=== PATIENT | female | born 1970 | race Caucasian/White ===

== ENCOUNTER 2016-07-24 17:47 | Observation (INO) | payer OTHER ==
[2016-07-24] MEDS ORDERED: ASPIRIN 81 MG CHEW TAB PO ONE (18:00)
[2016-07-24 18:11] LABS: BASOPHILS % 0.6 (0.0-1.5); EOSINOPHILS % 3.1 % (0.0-6.8); LYMPHOCYTES # 2.5 # k/uL (0.6-4.0); MONOCYTES # 0.2 # k/uL (0.0-0.9); MONOCYTES % 3.1 % (0.0-11.0); NEUTROPHILS # 3.8 # k/uL (1.4-7.7)
[2016-07-24 18:28] LABS: eGFR (African) > 60; eGFR (Non-African) > 60
[2016-07-24] MEDS ORDERED: NITROGLYCERIN 0.4 MG TAB.SUBL SL ONE ×2 (18:28→19:02)
[2016-07-24] MEDS ORDERED: ONDANSETRON HCL/PF 4 MG/ 2ML VIAL ONE (18:28)
[2016-07-24] MEDS ORDERED: ONDANSETRON HCL/PF 4 MG/ 2ML VIAL IVP ONE (18:28)
--- NOTE | 2016-07-24 19:02 | ED Physician Documentation ---
General Adult - HISTORIAN Historian: patient - HPI Stated Complaint: chest pain Chief Complaint: General Adult Onset: days ago Timing: still present Severity: moderate Further Comments: yes (Pt is a 46 yo female with 3 hx of intermittent chest pain , sob, nausea. Pt has hx ND about 3 yrs ago with stent placement and also has had hx of surgery to remove pituitary tumor. Pt is a smoker. Pt states that pain occurs in L shoulder and arm and also in L leg. 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.) - ROS CONST: other (malaise) EYES/ENT: none CVS/RESP: chest pain, shortness of breath GI/: nausea MS/SKIN/LYMPH: leg pain, other (arm pain) - PAST HX Past History: AMI, COPD, hypertension Other History: diabetes Type 2, other (HLD) Surgeries/Procedures: cardiac stent Allergies/Adverse Reactions: Allergies Allergy/AdvReac Type Severity Reaction Status Date / Time tramadol Allergy Intermediate Vomiting Verified 07/24/16 18:42 ketorolac tromethamine AdvReac Intermediate Nausea/Vomi Verified 07/24/16 18:44 [From Toradol] ting nortriptyline [Nortriptyline] AdvReac Intermediate Vomiting Verified 07/24/16 18 :42 Home Medications: Ambulatory Orders Medication Instructions Recorded Metformin HCl [Glucophage] 1,000 mg D 01/17/13 Simvastatin [Simvastatin] 10 mg D 01/17/13 acetaZOLAMIDE [Diamox] 500 mg PO BID #30 tablet 06/03/14 Cyclobenzaprine HCl [Flexeril] 5 mg PO TID PRN #10 tablet 12/10/15 Oxycodone HCl/Acetaminophen 1 tab PO Q4-6 PRN 12/10/15 [Oxycodone-Acetaminophen 10-325] - SOCIAL HX Smoking History: cigarettes - FAMILY HX Family History: Yes (CAD before age 55) - VITAL SIGNS Vital Signs: Vital Signs Temp Pulse Resp BP Pulse Ox 98.4 F 84 20 126/93 96 07/24/16 17:45 07/24/16 17:45 07/24/16 17:45 07/24/16 17:45 07/24/16 17:45 - REVIEWED ASSESSMENTS Nursing Assessment Reviewed: Yes Vitals Reviewed: Yes Progress - Progress Progress: Nitro 0.4 mg SL Pain 8-->6 Nitro 0.4 mg SL Pain 6-->4 NS 500 cc IVF Fentanyl 50 mcg IV Pain-->1 D-dimer - neg Admit to ER doctor observation for r/o ND. - EKG/XRAY/CT EKG: NSR (HR=82; normal IA interval; normal axis; non-specific T wave changes.) XRAY: chest (wnl) ED Results Lab/Radiology - Lab Results Lab Results: Lab Results 07/24/16 07/24/16 07/24/16 18:05 18:05 18:05 WBC 6.70 K/ul K/ul (4.00-12.00) RBC 4.04 M/ul M/ul (3.90-5.20) Hgb 12.5 g/dL g/dL (12.0-16.0) Hct 36.0 % % (34.5-46.5) MCV 89.1 fl fl (80.0-100.0) MCH 31.0 pg pg (28.0-34.0) MCHC 34.8 g/dL g/dL (30.0-36.0) RDW 13.2 % % (11.3-14.3) Plt Count 230 K/mm3 K/mm3 (130-400) Neut % (Auto) 55.7 % % (39.0-79.0) Lymph % (Auto) 36.7 % % (16.0-50.0) [place] % (Auto) 3.1 % % (0.0-11.0) Eos % (Auto) 3.1 % % (0.0-6.8) Baso % (Auto) 0.6 (0.0-1.5) Neut # 3.8 # k/uL # k/uL (1.4-7.7) Lymph # 2.5 # k/uL # k/uL (0.6-4.0) [place] # 0.2 # k/uL # k/uL (0.0-0.9) Eos # 0.2 # k/uL # k/uL (0.0-0.6) Baso # 0.0 # k/uL # k/uL (0.0-0.5) Reactive Lymphs % 0.8 % % (0.0-5.0) Reactive Lymphs # 0.0 # k/uL # k/uL (0.0-0.8) Sodium 136 mmol/L mmol/L (136-145) Potassium 3.8 mmol/L mmol/L (3.5-5.0) Chloride 103 mmol/L mmol/L (98-110) Carbon Dioxide 35 mmol/L H mmol/L (20-32) BUN 15 mg/dL mg/dL (10-26) Creatinine 0.8 mg/dL mg/dL (0.4-1.5) Estimated Creat Clear 354 Est GFR ( Amer) > 60 (60 - ) Est GFR (Non-Af Amer) > 60 (60 - ) Glucose 165 mg/dL H mg/dL (70-99) Calcium 10.4 mg/dL mg/dL (8.5-10.5) Total Bilirubin 0.2 mg/dL mg/dL (0.2-1.2) AST 20 U/L U/L (0-41) ALT 26 U/L U/L (0-45) Alkaline Phosphatase 75 U/L U/L (46-116) Creatine Kinase 90 U/L U/L (0-225) Troponin I < 0.03 ng/mL L ng/mL (0.03-0.06) Total Protein 7.1 g/dL g/dL (6.0-8.5) Albumin 4.8 g/dL g/dL (3.0-5.5) - Orders Orders: ED Orders Category Date Time Status Continuous EKG monitoring Q30M Care 07/24/16 18:00 Active Continuous Pulse Oximetry Q30M Care 07/24/16 18:[address] Saline Lock/IV NOW Care 07/24/16 18:00 Active CHEST 1 VIEW [RAD] Stat Exams 07/24/16 18:00 Taken CBC/PLATELET/DIFF Routine Lab 07/24/16 18:05 Completed CMP Routine Lab 07/24/16 18:05 Completed CREATINE KINASE Routine Lab 07/24/16 18:05 Completed D DIMER Routine Lab 07/24/16 18:05 Received NT-proBNP Routine Lab 07/24/16 18:05 Received TROPONIN I (cTnI) Stat Lab 07/24/16 18:05 Completed Aspirin Med 07/24/16 18:00 Discontinued 324 mg PO NOW ONE Nitroglycerin [Nitroquick] Med 07/24/16 18:28 Discontinued 0.4 mg SL NOW ONE Ondansetron HCl/Pf [Zofran 4 mg/2 ml] Med 07/24/16 18:28 Discontinued 4 mg .ROUTE .STK-MED ONE Ondansetron HCl/Pf [Zofran 4 mg/2 ml] Med 07/24/16 18:28 Discontinued 4 mg IVP NOW ONE Oxygen Daily Oxygen 07/24/16 18:00 Ordered EKG WITH COMPARISON Stat Ther 07/24/16 18:00 Ordered General Adult Physical Exam - PHYSICAL EXAM GENERAL APPEARANCE: anxious EENT: eye inspection normal, pharynx normal NECK: normal inspection, supple RESPIRATORY: no resp distress, chest non-tender, breath sounds normal CVS: reg rate & rhythm, heart sounds normal ABDOMEN: soft, normal bowel sounds BACK: normal inspection, no CVA tenderness SKIN: warm/dry, normal color EXTREMITIES: normal range of motion, other (L calf tenderness; no palpable cords ) NEURO: oriented X3, motor nml, sensation nml, other (anxious, mild) Discharge Clincal Impression: Chest pain Qualifiers: Chest pain type: unspecified Qualified Code(s): R07.9 - Chest pain, unspecified Home Medications: Ambulatory Orders Metformin HCl [Glucophage] 1,000 mg D 01/17/13 Simvastatin [Simvastatin] 10 mg D 01/17/13 acetaZOLAMIDE [Diamox] 500 mg PO BID #30 tablet 06/03/14 Cyclobenzaprine HCl [Flexeril] 5 mg PO TID PRN #10 tablet 12/10/15 Oxycodone HCl/Acetaminophen [Oxycodone-Acetaminophen 10-325] 1 tab PO Q4-6 PRN 12/10/15 Condition: Stable Disposition: ADMITTED INPATIENT Decision to Admit: [id number] Decision Time: 20:25
[2016-07-24] MEDS ORDERED: 0.9 % SODIUM CHLORIDE 1,000 ML IV ONE (19:08)
[2016-07-24] MEDS ORDERED: fentaNYL CITRATE/PF 100 MCG/ 2ML AMP ONE (19:17)
[2016-07-24] MEDS ORDERED: fentaNYL CITRATE/PF 100 MCG/ 2ML AMP IVP ONE ×2 (19:17→22:43)
[2016-07-24 21:29] VITALS: BMI 31.7
[2016-07-24] MEDS ORDERED: KETOROLAC TROMETHAMINE 30 MG/1ML VIAL ONE (21:57)
[2016-07-25] MEDS ORDERED: SALINE FLUSH 10 ML DISP.SYRIN IVF ONE (00:01)
--- NOTE | 2016-07-25 05:16 | Diagnostic Imaging Report ---
[facility] [address] [facility].[address] [address] ~ ~ ~ ~ Report Submission Date: Jul 24, 2016 6:44:33 PM MACHINE SETTER Patient ~ Study Name: GARTH COPELAND ~ Date: Jul 24, 2016 6:19:18 PM MACHINE SETTER ~ Modality Type: CR Gender: F ~ Description: CHEST : 72 ~ Institution: [facility] Physician: ROXI PANDA ~ ~ ~ ~ Chest -one view CLINICAL HISTORY: ~ Chest pain for 3-4 days. FINDINGS: ~ Examination of the chest single portable AP view 07/2016 1819 hr with comparison to examination 02/02/2016 demonstrates the lungs to be clear. ~ Cardiovascular and mediastinal silhouettes are within normal limits. ~Monitor leads superimpose the chest. IMPRESSION: ~ No significant change. ~ No active disease. ~ Electronically signed on Jul 24, 2016 6:44:33 PM MACHINE SETTER by: Michael FULTON
[2016-07-25 07:49] VITALS: BP 123/70
--- NOTE | 2016-09-26 09:39 | Discharge Summary ---
Discharge Summary - Discharge Sumary History of Present Illness: Pt is a 46 yo female with 3 day hx of intermittent chest pain, sob, nausea. Pt has hx ME about 3 yrs ago with stent placement and also has had hx of surgery to remove pituitary tumor. Pt is a smoker. Pt states that pain occurs in L shoulder and arm and also in L leg. 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 Condition at Discharge: Stable Home Medications: Ambulatory Orders Medication Instructions Recorded Oxycodone HCl/Acetaminophen 1 tab PO Q4-6 PRN 12/10/15 [Oxycodone-Acetaminophen 10-325] Aspirin [Adult Low Dose Aspirin EC] 81 mg PO D 07/25/16 Atorvastatin Calcium [Lipitor] 20 mg PO HS 07/25/16 Clonazepam 1 mg PO BID PRN 07/25/16 Famotidine [Pepcid] 20 mg PO 717 07/25/16 Hydrochlorothiazide [Hydrodiuril] 25 mg PO DAILY 07/25/16 Hydrocortisone [Cortef] 10 mg PO DIRECTED 07/25/16 Insulin Glargine,Hum.rec.anlog 10 unit SQ HS PRN 07/25/16 [Lantus Solostar] Levothyroxine Sodium [Synthroid] 50 mcg PO D 07/25/16 Metformin HCl [Glucophage] 1,[place] [address] 07/25/16 Metoprolol Tartrate [Lopressor] 50 mg PO BID 07/25/16 Consultations this Visit: None Procedures this Visit: None Allergies/Adverse Reactions: Allergies Allergy/AdvReac Type Severity Reaction Status Date / Time tramadol Allergy Intermediate Vomiting Verified 07/31/16 17:48 ketorolac tromethamine AdvReac Intermediate Nausea/Vomi Verified 07/31/16 17:48 [From Toradol] ting nortriptyline [Nortriptyline] AdvReac Intermediate Vomiting Verified 07/31/16 17 :48 Discharge Summary: Patient was placed on Telemetry. Patient pulse rate remained stable. Serial EKGs were done withchanges consistent with ischemia. Serial cardiac enzymes were done and remained stable. Patient did not have any further chest pain during the hospitalization. Patient was subsequently discharged home in stable condition. Patient was encouraged to stop smoking. - Final Diagnosis (1) Non-cardiac chest pain Problems: Patient was advised to follow-up with her insurance associate or primary care physician for further evaluation and treatment. Was advised if he had any further chest pains return to ED. (2) Diabetes type 2, controlled Problems: Patient will be continued on home medications. (3) Tobacco dependency Problems: Patient was encouraged to stop smoking.
== END 2016-07-25 08:25 | disposition home or self-care (01) ==
LOC: ED 17:47 → SOUTH 20:49
PROVIDERS: ADMIT Emergency Medicine; ATTEND Emergency Medicine
DX: R07.89 Other chest pain (principal); E11.9 Type 2 diabetes mellitus without complications; F17.210 Nicotine dependence, cigarettes, uncomplicated
CPT/HCPCS: 36415; 71010; 80053; 82550; 82553; 83880; 84484; 85025; 85379; 93005; G0378; J2405; J3010; J7030; J1885; S1016

== ENCOUNTER 2016-07-31 17:19 | Emergency (ER) | payer OTHER ==
[2016-07-31 17:45] VITALS: BP 109/80
--- NOTE | 2016-07-31 18:04 | ED Physician Documentation ---
Skin Rash - HISTORIAN Historian: patient - HPI Stated Complaint: sores in mouth and nose Chief Complaint: Skin Rash Additional Information: smoked [place] medium cigarettes which make her mm's break out Onset: days ago (2) Timing: still present Duration: persistent since (07/29/16) Location: other (lips, mouth, nose) Quality: painful Identified Cause?: Yes (tobacco) When Did Symptoms Start: 07/29/16 Where: home Context: Medication Exposure: none Context: Food Exposure: none Context: Other Exposure: other (tobacco) Further Comments: no - ROS CONST: none CVS/RESP: none EYES/ENT: none GI/: none MS/SKIN/LYMPH: none NEURO/PSYCH: none - PAST HX Past History: AMI, CAD, diabetes Type 2, hypertension, other (depression, anxiety) Other History: other (hyperlipidemia, hypothyroidism) Immunizations: referred to PCP Allergies/Adverse Reactions: Allergies Allergy/AdvReac Type Severity Reaction Status Date / Time tramadol Allergy Intermediate Vomiting Verified 07/31/16 17:48 ketorolac tromethamine AdvReac Intermediate Nausea/Vomi Verified 07/31/16 17:48 [From Toradol] ting nortriptyline [Nortriptyline] AdvReac Intermediate Vomiting Verified 07/31/16 17 :48 Home Medications: Ambulatory Orders Medication Instructions Recorded Oxycodone HCl/Acetaminophen 1 tab PO Q4-6 PRN 12/10/15 [Oxycodone-Acetaminophen 10-325] Aspirin [Adult Low Dose Aspirin EC] 81 mg PO D 07/25/16 Atorvastatin Calcium [Lipitor] 20 mg PO HS 07/25/16 Clonazepam 1 mg PO BID PRN 07/25/16 Famotidine [Pepcid] 20 mg PO 717 07/25/16 Hydrochlorothiazide [Hydrodiuril] 25 mg PO DAILY 07/25/16 Hydrocortisone [Cortef] 10 mg PO DIRECTED 07/25/16 Insulin Glargine,Hum.rec.anlog 10 unit SQ HS PRN 07/25/16 [Lantus Solostar] Levothyroxine Sodium [Synthroid] 50 mcg PO D 07/25/16 Metformin HCl [Glucophage] 1,[place] [address] 07/25/16 Metoprolol Tartrate [Lopressor] 50 mg PO BID 01/21/17 - SOCIAL HX Smoking History: cigarettes Alcohol Use: none Drug Use: none - FAMILY HX Family History: none - VITAL SIGNS Vital Signs: Vital Signs Temp Pulse Resp BP Pulse Ox 97.8 F 84 14 109/80 07/31/16 17:19 07/31/16 17:19 07/31/16 17:19 07/31/16 17:19 - REVIEWED ASSESSMENTS Nursing Assessment Reviewed: No Vitals Reviewed: No Progress - Results/Orders Results/Orders: no testing ordered - Progress Progress: pt. stable entire time in er Critical Care Note - Critical Care Note Total Time (mins): 0 ED Results Lab/Radiology - Lab Results Lab Results: no testing ordered - Radiology Radiology Impressions: none ordered Skin Rash Physical Exam - EXAM General Appearance: moderate distress Skin: other (multiple lesions lips, mm's of nose and mouth) Location: other (nose and mouth) Character: vesicular Symptoms: tenderness, crusting Extremities: non-tender, nml ROM, no edema EENT: eyes nml inspection Neck: trachea midline, no swelling Respiratory: no resp distress, chest non-tender, breath sounds normal CVS: reg. rate & rhythm, heart sounds nml Abdomen: non-tender, no organomegaly, nml bowel sounds, no distention Neuro/Psych: oriented x3, CN's nml as tested, motor nml, sensation nml, mood/ affect nml Discharge Clincal Impression: Stomatitis Home Medications: Ambulatory Orders Oxycodone HCl/Acetaminophen [Oxycodone-Acetaminophen 10-325] 1 tab PO Q4-6 PRN 12/10/15 Aspirin [Adult Low Dose Aspirin EC] 81 mg PO D 07/25/16 Atorvastatin Calcium [Lipitor] 20 mg PO HS 07/25/16 Clonazepam 1 mg PO BID PRN 07/25/16 Famotidine [Pepcid] 20 mg PO 717 07/25/16 Hydrochlorothiazide [Hydrodiuril] 25 mg PO DAILY 07/25/16 Hydrocortisone [Cortef] 10 mg PO DIRECTED 07/25/16 Insulin Glargine,Hum.rec.anlog [Lantus Solostar] 10 unit SQ HS PRN 07/25/16 Levothyroxine Sodium [Synthroid] 50 mcg PO D 07/25/16 Metformin HCl [Glucophage] 1,[place] [address] 07/25/16 Metoprolol Tartrate [Lopressor] 50 mg PO BID 07/25/16 Comments: discharged in stable condition with scripts for magic mouthwash (Benadryl elixir 100 cc + Pediapred 5mg/5cc 100 cc and 2% viscous lidocaine 100 cc) and bactrim ds #14 1 p.o. bid. Condition: Stable Disposition: 01 HOME, SELF-CARE Decision to Admit: NO Decision Time: 17:45
== END 2016-07-31 18:02 | disposition home or self-care (01) ==
LOC: ED 17:19
DX: K12.1 Other forms of stomatitis (principal)
CPT/HCPCS: 99282

== ENCOUNTER 2016-11-16 17:15 | Emergency (ER) | payer OTHER ==
[2016-11-16 17:58] LABS: BASOPHILS % 0.8 (0.0-1.5); EOSINOPHILS % 2.3 % (0.0-6.8); MEAN CORPUSCULAR HEMOGLOBIN 31.5 pg (28.0-34.0); MEAN CORPUSCULAR VOLUME 89.8 fl (80.0-100.0); MONOCYTES % 3.2 % (0.0-11.0); NEUTROPHILS # 5.9 # k/uL (1.4-7.7)
[2016-11-16 18:01] LABS: APPEARANCE,URINE Clear (CLEAR); COLOR,URINE Yellow (YELLOW); OCCULT BLOOD,URINE 2+ (NEGATIVE); UROBILINOGEN URINE 0.2 Eu (0.2-1.0)
[2016-11-16 18:06] LABS: AMORPHOUS SEDIMENT,UR FEW (NEGATIVE)
[2016-11-16 18:08] LABS: eGFR (African) > 60; eGFR (Non-African) > 60
--- NOTE | 2016-11-16 18:35 | Diagnostic Imaging Report ---
[facility] [address] [address] Report Submission Date: November 16, 2016 6:33:15 PM CDT Patient Study Name: GARTH COPELAND Date: November 16, 2016 6:08:25 PM CDT Modality Type: CR Gender: F Description: CHEST : 72 Institution: [facility] Physician: REYNA PLATT (LUMBER CHECKER) - ER 2 views the chest Clinical history: Chest pain a short of breath Findings: The heart size is normal. The pulmonary vasculature is normal. No pleural effusion, pneumothorax or alveolar consolidation. Impression: Negative Electronically signed on November 16, 2016 6:33:15 PM CDT by: Simeon FULTON
--- NOTE | 2016-11-16 18:44 | ED Physician Documentation ---
General Adult - HISTORIAN Historian: patient - HPI Stated Complaint: Left chest pain Chief Complaint: General Adult Onset: other ("for years") Timing: still present Further Comments: yes (46 year old female patient presents with chest pain. Patient states she has had chest pain for years, worse over the past month. Patient states she was suppose to have a stress test on Wednesday11/13/2016 but she could not get a ride to [facility]. Patient states her doctor called her today for follow up. Patient states "he said I needed to be seen". 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 Patient states the pain is worse when she lies on her left side.) - ROS CONST: no problems EYES/ENT: none CVS/RESP: chest pain. denies: shortness of breath, cough GI/: none MS/SKIN/LYMPH: none NEURO/PSYCH: denies: headache - PAST HX Past History: AMI (2013), hypertension, other (HLD, Depression, anxiety, HLD, pituitary tumor, hypothyroidism) Other History: diabetes Type 2 Surgeries/Procedures: cardiac stent, other (pituitary tumor removed, stent) Allergies/Adverse Reactions: Allergies Allergy/AdvReac Type Severity Reaction Status Date / Time tramadol Allergy Intermediate Vomiting Verified 11/16/16 17:46 ketorolac tromethamine AdvReac Intermediate Nausea/Vomi Verified 11/16/16 17:46 [From Toradol] ting nortriptyline [Nortriptyline] AdvReac Intermediate Vomiting Verified 11/16/16 17 :46 Home Medications: Ambulatory Orders Medication Instructions Recorded Aspirin [Adult Low Dose Aspirin EC] 81 mg PO D 07/25/16 Atorvastatin Calcium [Lipitor] 20 mg PO HS 07/25/16 Clonazepam 1 mg PO BID PRN 07/25/16 Famotidine [Pepcid] 20 mg PO 717 07/25/16 Hydrochlorothiazide [Hydrodiuril] 25 mg PO DAILY 07/25/16 Hydrocortisone [Cortef] 10 mg PO DIRECTED 07/25/16 Insulin Glargine,Hum.rec.anlog 10 unit SQ HS PRN 07/25/16 [Lantus Solostar] Levothyroxine Sodium [Synthroid] 50 mcg PO D 07/25/16 Metformin HCl [Glucophage] 1,[place] [address] 07/25/16 Metoprolol Tartrate [Lopressor] 50 mg PO BID 07/25/16 - SOCIAL HX Smoking History: cigarettes (2ppd) - FAMILY HX Family History: No - VITAL SIGNS Vital Signs: Vital Signs Temp Pulse Resp BP Pulse Ox 98.2 F 90 21 107/72 93 11/16/16 17:48 11/16/16 17:48 11/16/16 17:48 11/16/16 17:48 11/16/16 17:48 - REVIEWED ASSESSMENTS Nursing Assessment Reviewed: Yes Vitals Reviewed: Yes Progress - EKG/XRAY/CT EKG: rhythm (SR, rate 84, no acute changes) XRAY: chest (negative) ED Results Lab/Radiology - Lab Results Lab Results: Lab Results 11/16/16 11/16/16 11/16/16 17:50 17:50 17:50 WBC 10.60 K/ul K/ul (4.00-12.00) RBC 4.30 M/ul M/ul (3.90-5.20) Hgb 13.6 g/dL g/dL (12.0-16.0) Hct 38.6 % % (34.5-46.5) MCV 89.8 fl fl (80.0-100.0) MCH 31.5 pg pg (28.0-34.0) MCHC 35.1 g/dL g/dL (30.0-36.0) RDW 13.8 % % (11.3-14.3) Plt Count 268 K/mm3 K/mm3 (130-400) Neut % (Auto) 55.6 % % (39.0-79.0) Lymph % (Auto) 37.1 % % (16.0-50.0) [place] % (Auto) 3.2 % % (0.0-11.0) Eos % (Auto) 2.3 % % (0.0-6.8) Baso % (Auto) 0.8 (0.0-1.5) Neut # 5.9 # k/uL # k/uL (1.4-7.7) Lymph # 3.9 # k/uL # k/uL (0.6-4.0) [place] # 0.3 # k/uL # k/uL (0.0-0.9) Eos # 0.2 # k/uL # k/uL (0.0-0.6) Baso # 0.1 # k/uL # k/uL (0.0-0.5) Reactive Lymphs % 1.0 % % (0.0-5.0) Reactive Lymphs # 0.1 # k/uL # k/uL (0.0-0.8) Sodium 139 mmol/L mmol/L (136-145) Potassium 3.6 mmol/L mmol/L (3.5-5.0) Chloride 98 mmol/L mmol/L (98-110) Carbon Dioxide 34 mmol/L H mmol/L (20-32) BUN 16 mg/dL mg/dL (10-26) Creatinine 0.9 mg/dL mg/dL (0.4-1.5) Estimated Creat Clear 141 Est GFR ( Amer) > 60 (60 - ) Est GFR (Non-Af Amer) > 60 (60 - ) Glucose 111 mg/dL H mg/dL (70-99) Calcium 11.0 mg/dL H mg/dL (8.5-10.5) Total Bilirubin 0.3 mg/dL mg/dL (0.2-1.2) AST 14 U/L U/L (0-41) ALT 16 U/L U/L (0-45) Alkaline Phosphatase 72 U/L U/L (46-116) Troponin I < 0.03 ng/mL L ng/mL (0.03-0.06) Total Protein 8.3 g/dL g/dL (6.0-8.5) Albumin 5.2 g/dL g/dL (3.0-5.5) Urine Color Urine Appearance Urine pH Ur Specific [place] Urine Protein Urine Ketones Urine Occult Blood Urine Nitrite Urine Bilirubin Urine Urobilinogen Ur Leukocyte Esterase Urine RBC Urine WBC Ur Squamous Epith Cells Amorphous Sediment Urine Glucose 11/16/16 17:50 WBC RBC Hgb Hct MCV MCH MCHC RDW Plt Count Neut % (Auto) Lymph % (Auto) [place] % (Auto) Eos % (Auto) Baso % (Auto) Neut # Lymph # [place] # Eos # Baso # Reactive Lymphs % Reactive Lymphs # Sodium Potassium Chloride Carbon Dioxide BUN Creatinine Estimated Creat Clear Est GFR ( Amer) Est GFR (Non-Af Amer) Glucose Calcium Total Bilirubin AST ALT Alkaline Phosphatase Troponin I Total Protein Albumin Urine Color Yellow (YELLOW) Urine Appearance Clear (CLEAR) Urine pH 5.0 (5.0 - 8.0) Ur Specific [place] 1.025 (1.010-1.030) Urine Protein Negative mg/dL mg/dL (NEGATIVE) Urine Ketones Negative mg/dL mg/dL (NEGATIVE) Urine Occult Blood 2+ H (NEGATIVE) Urine Nitrite Negative (NEGATIVE) Urine Bilirubin Negative (NEGATIVE) Urine Urobilinogen 0.2 Eu Eu (0.2-1.0) Ur Leukocyte Esterase 1+ H (NEGATIVE) Urine RBC 2-5 H (0-2 HPF) Urine WBC 5-10 H (0-5 HPF) Ur Squamous Epith Cells Few (NEG-FEW) Amorphous Sediment Few H (NEGATIVE) Urine Glucose Negative mg/dL mg/dL (NEGATIVE) - Radiology Radiology Impressions: 2 views the chest Clinical history: Chest pain a short of breath Findings: The heart size is normal. The pulmonary vasculature is normal. No pleural effusion, pneumothorax or alveolar consolidation. Impression: Negative - Orders Orders: ED Orders Category Date Time Status Place Saline Lock/IV NOW Care 11/16/16 17:49 Active CHEST 2 VIEW [CHEST P.A.&LAT 2 VIEWS] [RAD] Stat Exams 11/16/16 Completed CBC/PLATELET/DIFF Stat Lab 11/16/16 17:50 Completed CMP Stat Lab 11/16/16 17:50 Completed TROPONIN I (cTnI) Stat Lab 11/16/16 17:50 Completed UA W/MICRO IF INDICATED Stat Lab 11/16/16 17:50 Completed URINE CULTURE Stat Lab 11/16/16 17:50 Received EKG WITH COMPARISON Routine Ther 11/16/16 Completed General Adult Physical Exam - PHYSICAL EXAM GENERAL APPEARANCE: [id number] N EENT: eye inspection normal, DIONE RESPIRATORY: no resp distress, chest non-tender, breath sounds normal CVS: reg rate & rhythm, heart sounds normal, equal pulses, no murmur, no gallop , PMI nml, no JVD, no friction rub, 24 ABDOMEN: soft, no organomegaly, normal bowel sounds, no abdominal bruit, no distension SKIN: normal color, warm/dry, NR, INT, PAL, DR EXTREMITIES: non-tender, normal range of motion, no evidence of injury, no edema , J, ED SPECIAL EDUCATION TEACHER NEURO: oriented X3, CN's nml as tested, motor nml, sensation nml, mood/affect nml Discharge Clincal Impression: Non-cardiac chest pain Additional Instructions: Keep your appointment with the cyber security manager. Stop smoking Continue all your current medications. Home Medications: Ambulatory Orders Aspirin [Adult Low Dose Aspirin EC] 81 mg PO D 07/25/16 Atorvastatin Calcium [Lipitor] 20 mg PO HS 07/25/16 Clonazepam 1 mg PO BID PRN 07/25/16 Famotidine [Pepcid] 20 mg PO 717 07/25/16 Hydrochlorothiazide [Hydrodiuril] 25 mg PO DAILY 07/25/16 Hydrocortisone [Cortef] 10 mg PO DIRECTED 07/25/16 Insulin Glargine,Hum.rec.anlog [Lantus Solostar] 10 unit SQ HS PRN 07/25/16 Levothyroxine Sodium [Synthroid] 50 mcg PO D 07/25/16 Metformin HCl [Glucophage] 1,[place] [id number] 07/25/16 Metoprolol Tartrate [Lopressor] 50 mg PO BID 07/25/16 Condition: Stable Disposition: HOME, SELF-CARE Decision to Admit: NO Decision Time: 18:50
[2016-11-16] MEDS ORDERED: NALBUPHINE HCL 10 MG/1 ML IM ONE (18:53)
[2016-11-16 19:16] VITALS: BP 114/76
== END 2016-11-16 19:14 | disposition home or self-care (01) ==
LOC: ED 17:15
DX: R07.9 Chest pain, unspecified (principal); F17.210 Nicotine dependence, cigarettes, uncomplicated
CPT/HCPCS: 71020; 80053; 81002; 84484; 85025; 87086; 93005; J2300; 99283; 99284; S1016

== ENCOUNTER 2016-12-01 11:47 | Outpatient (CLI) | payer OTHER | END 2016-12-01 11:50 | LOC: CARD 11:47 | PROVIDERS: ATTEND Internal Medicine Cardiovascular Disease | DX: I25.10 Atherosclerotic heart disease of native coronary artery without angina pectoris (principal); E11.9 Type 2 diabetes mellitus without complications; I10 Essential (primary) hypertension; E78.5 Hyperlipidemia, unspecified; F17.210 Nicotine dependence, cigarettes, uncomplicated | CPT/HCPCS: G0463 ==

== ENCOUNTER 2016-12-22 13:49 | Outpatient (CLI) | payer OTHER | END 2016-12-22 13:54 | disposition home or self-care (01) | LOC: CARD 13:49 | PROVIDERS: ATTEND Internal Medicine Cardiovascular Disease | DX: I25.10 Atherosclerotic heart disease of native coronary artery without angina pectoris (principal); R07.9 Chest pain, unspecified ==

== ENCOUNTER 2016-12-31 11:50 | Emergency (ER) | payer OTHER ==
[2016-12-31 12:11] VITALS: BP 102/76
--- NOTE | 2016-12-31 12:38 | ED Physician Documentation ---
Sore Throat/Dental Pain - HISTORIAN Historian: patient - HPI Stated Complaint: right neck swelling Chief Complaint: Dental Pain Additional Information: Left sided pain yesterday, today right dental/mouth pain, cannot chew without pain in gums. Onset: days ago (2) Context: Possible Infection Associated Symptoms: other (hurts to chew) Worsened By: heat, cold Relieved By: nothing Further Comments: no - ROS CONST: no problems CVS/RESP: none GI/: denies: problems urinating, nausea, vomiting MS/SKIN/LYMPH: denies: muscle aches, rash, leg swelling, ankle swelling NEURO/PSYCH: none - PAST HX Past History: other (htn, mi, hyperlipidemia) Other History: cardiac disease, diabetes Type 2 Immunizations: referred to PCP Allergies/Adverse Reactions: Allergies Allergy/AdvReac Type Severity Reaction Status Date / Time tramadol Allergy Intermediate Vomiting Verified 12/31/16 12:11 ketorolac tromethamine AdvReac Intermediate Nausea/Vomi Verified 12/31/16 12:11 [From Toradol] ting nortriptyline [Nortriptyline] AdvReac Intermediate Vomiting Verified 12/31/16 12 :11 Home Medications: Ambulatory Orders Medication Instructions Recorded Aspirin [Adult Low Dose Aspirin EC] 81 mg PO D 07/25/16 Atorvastatin Calcium [Lipitor] 20 mg PO HS 07/25/16 Clonazepam 1 mg PO BID PRN 07/25/16 Famotidine [Pepcid] 20 mg PO 717 07/25/16 Hydrochlorothiazide [Hydrodiuril] 25 mg PO DAILY 07/25/16 Hydrocortisone [Cortef] 10 mg PO DIRECTED 07/25/16 Insulin Glargine,Hum.rec.anlog 10 unit SQ HS PRN 07/25/16 [Lantus Solostar] Levothyroxine Sodium [Synthroid] 50 mcg PO D 07/25/16 Metformin HCl [Glucophage] 1,[place] [address] 07/25/16 Metoprolol Tartrate [Lopressor] 50 mg PO BID 07/25/16 - SOCIAL HX Smoking History: cigarettes Alcohol Use: occasionally Drug Use: none - FAMILY HX Family History: No - VITAL SIGNS Vital Signs: Vital Signs Temp Pulse Resp BP Pulse Ox 98.8 F 76 18 102/76 99 12/31/16 12:02 12/31/16 12:02 12/31/16 12:02 12/31/16 12:02 12/31/16 12:02 - REVIEWED ASSESSMENTS Nursing Assessment Reviewed: Yes Vitals Reviewed: Yes Progress - Results/Orders Results/Orders: no testing ordered - Progress Progress: pt. stable entire time in er Critical Care Note - Critical Care Note Total Time (mins): 0 ED Results Lab/Radiology - Lab Results Lab Results: none ordered - Radiology Radiology Impressions: none ordered Dental Pain Physical Exam - EXAM General Appearance: alert, moderate distress Head/Neck: maxillary swelling (R), cervical lymphadenopathy, anterior (right sided) Eyes: eyes nml inspection, PERRL Mouth/Throat: lips nml, gums nml, voice nml, no drooling, no air way problems, no thrush, other (edema gums right lower jaw) Respiratory: no resp. distress, breath sounds nml CVS: reg. rate & rhythm, heart sounds nml Abdomen: soft, no organomegaly, normal bowel sounds, no abdominal bruit, no distension, non-tender Extremities: non-tender, nml ROM Skin: warm/dry, normal color Neuro/Psych: No: weakness, numbness, anxiety, depression Discharge Clincal Impression: Gingivitis Referrals: Ba Edward MD [Primary Care Provider] - 2 Days Home Medications: Ambulatory Orders Aspirin [Adult Low Dose Aspirin EC] 81 mg PO D 07/25/16 Atorvastatin Calcium [Lipitor] 20 mg PO HS 07/25/16 Clonazepam 1 mg PO BID PRN 07/25/16 Famotidine [Pepcid] 20 mg PO 717 07/25/16 Hydrochlorothiazide [Hydrodiuril] 25 mg PO DAILY 07/25/16 Hydrocortisone [Cortef] 10 mg PO DIRECTED 07/25/16 Insulin Glargine,Hum.rec.anlog [Lantus Solostar] 10 unit SQ HS PRN 07/25/16 Levothyroxine Sodium [Synthroid] 50 mcg PO D 07/25/16 Metformin HCl [Glucophage] 1,[place] [id number] 07/25/16 Metoprolol Tartrate [Lopressor] 50 mg PO BID 07/25/16 Comments: discharged with scripts for 2% viscous lidocaine # 1 bottle, apply to affected gums before meals and prn, amoxicillin 500 mg 1 p.o. tid x 10 days #30 and meloxicam 7.5 mg #14 1 p.o. bid x 7 days. Condition: Stable Disposition: 01 HOME, SELF-CARE Decision to Admit: NO Decision Time: 12:20
== END 2016-12-31 12:29 | disposition home or self-care (01) ==
LOC: ED 11:50
DX: K05.10 Chronic gingivitis, plaque induced (principal)
CPT/HCPCS: 99283

== ENCOUNTER 2017-02-02 13:13 | Outpatient (CLI) | payer OTHER | END 2017-02-02 13:14 | LOC: CARD 13:13 | PROVIDERS: ATTEND Internal Medicine Cardiovascular Disease | DX: I25.10 Atherosclerotic heart disease of native coronary artery without angina pectoris (principal); R07.89 Other chest pain; E11.9 Type 2 diabetes mellitus without complications; I10 Essential (primary) hypertension; E78.5 Hyperlipidemia, unspecified | CPT/HCPCS: 99213 ==

== ENCOUNTER 2017-06-28 09:32 | Emergency (ER) | payer OTHER ==
[2017-06-28] MEDS ORDERED: Lidocaine 2%Visc 15ml 20 MG/ML UDC ONE (10:49)
[2017-06-28] MEDS ORDERED: Lidocaine 2%Visc 15ml 20 MG/ML UDC PO ONE (10:50)
--- NOTE | 2017-06-28 11:00 | ED Physician Documentation ---
Upper Respiratory Symptoms - HISTORIAN Historian: patient - HPI Stated Complaint: sore swollen moutn with blisters in mouth and throat Chief Complaint: Cough/ Upper Respiratory Additional Information: This is a 47 year old female with a history of recurrent oral gingivostomatitis. She says that she had this a few months ago, and took some amoxicillin and some "magic mouthwash" and that this helped quite a bit. Her symptoms have been present for the past few days. Onset: days ago Duration: constant Context: same sx (a few months ago). denies: recent foreign travel, insect bite (s) Associated Symptoms: denies: fever Worsened by Deep Breath: No Further Comments: no - ROS CONST/EYES: denies: weakness CVS/RESP: none LYMPH: leg swelling GI/: none NEURO/PSYCH: denies: fainting MS/SKIN: denies: joint pain - PAST HX Lung Disease: none PE Risk Factors: none Other History: denies: cancer chemo Surgeries/Procedures: none Immunizations: influenza Allergies/Adverse Reactions: Allergies Allergy/AdvReac Type Severity Reaction Status Date / Time tramadol Allergy Intermediate Vomiting Verified 06/28/17 10:30 ketorolac tromethamine AdvReac Intermediate Nausea/Vomi Verified 06/28/17 10:30 [From Toradol] ting nortriptyline [Nortriptyline] AdvReac Intermediate Vomiting Verified 06/28/17 10 :30 Home Medications: Ambulatory Orders Medication Instructions Recorded Aspirin [Adult Low Dose Aspirin EC] 81 mg PO D 07/25/16 Atorvastatin Calcium [Lipitor] 20 mg PO HS 07/25/16 Clonazepam 1 mg PO BID PRN 07/25/16 Famotidine [Pepcid] 20 mg PO 717 07/25/16 Hydrochlorothiazide [Hydrodiuril] 25 mg PO DAILY 07/25/16 Hydrocortisone [Cortef] 10 mg PO DIRECTED 07/25/16 Insulin Glargine,Hum.rec.anlog 10 unit SQ HS PRN 07/25/16 [Lantus Solostar] Levothyroxine Sodium [Synthroid] 50 mcg PO D 07/25/16 Metformin HCl [Glucophage] 1,[place] [address] 07/25/16 Metoprolol Tartrate [Lopressor] 50 mg PO BID 07/25/16 - SOCIAL HX Smoking History: quit greater than 1 year Alcohol Use: none Drug Use: none - FAMILY HX Family History: no significant history - VITAL SIGNS Vital Signs: Vital Signs Temp Pulse Resp BP Pulse Ox 98.5 F 67 20 166/98 98 06/28/17 09:32 06/28/17 09:32 06/28/17 09:32 06/28/17 09:32 06/28/17 09:32 - REVIEWED ASSESSMENTS Nursing Assessment Reviewed: Yes Vitals Reviewed: Yes ED Results Lab/Radiology - Orders Orders: ED Orders Category Date Time Status Lidocaine 2%Visc 15ml [Xylocaine] Med 06/28/17 10:50 Once 5 mg PO NOW ONE Lidocaine 2%Visc 15ml [Xylocaine] Med 06/28/17 10:49 Discontinued 600 mg .ROUTE .STK-MED ONE Upper Respiratory Symptoms - EXAM General Appearance: mild distress EENT: eyes nml inspection, nml ENT inspection, lids & conjunct. nml, PERRL, other (Pharynx is covered with superficial ulcerations) Respiratory: no resp. distress, breath sounds nml, no pain on inspiration Abdomen: non-tender, no organomegaly CVS: reg rate & rhythm Skin: color nml, no rash Extremities: non-tender Neuro/Psych: oriented x3 Discharge Clincal Impression: Gingivitis Referrals: Ba Edward MD [Primary Care Provider] - 2 Days Condition: Good Disposition: 01 HOME, SELF-CARE Decision to Admit: NO Date of Decison to Admit: 06/28/17 Decision Time: 11:03
[2017-06-28 11:21] VITALS: BP 157/89
== END 2017-06-28 11:19 | disposition home or self-care (01) ==
LOC: ED 09:32
DX: K05.10 Chronic gingivitis, plaque induced (principal)
CPT/HCPCS: 99283

== ENCOUNTER 2017-08-31 16:11 | Emergency (ER) | payer OTHER ==
--- NOTE | 2017-08-31 16:38 | ED Physician Documentation ---
Chest Pain - HISTORIAN Historian: patient - HPI Stated Complaint: chest pain Chief Complaint: Chest Pain Additional Information: Chest pain with radiation into arm for 3 weeks. Describes of heaviness. Worse with laying on her left side, better with laying on the right. Laying down makes the pain worse. Patient has a history of CAD. Had a MS October 2013. Had one stint put in. Was told that she might need to have some further stinting in the future. Had not had a stress test or cath since 2013. Se[address] Edmondson for heart care. Since that time has several bouts of chest paint. Describes the pain as being constant in nature. Gets some relief of the pain with asprin. Worse with eating and drinking. Pain in arm worse with wiggling finger. Smoker 1 1/2 ppd Diabetic not sure of last A1c HTN - has bben controlled Positive family history of CAD, mother, 4 brother, sister with CAD Cholesterol is OK. Onset: days ago (3 weeks) Timing: gradual onset, still present Duration: constant, persistent Last known Well Date: 08/09/17 Last Known Well Time: 08:00 Last known Well Code/Unknown Code: Known Context: other (not sure) Severity: mild (mild to moderate) Quality: pressure, sharp. denies: like prior MS (not sure) Chest Pain Radiation: arms (complains of pain in LUE with flexing her fingers. ) Chest Pain Signs/Symptoms: diaphoresis. denies: nausea, vomiting, dizziness, dyspnea, tachypnea, tachycardia, hypotension, palpitations Worsened By: deep breaths, movement, change in position. denies: exertion Relieved By: rest, aspirin, other (laying down) - ROS CONST: no problems. denies: fever, chills GI/: none SKIN/ENDO: none - PAST HX MS risk factors: hypertension, diabetes Type 2, hyperlipidemia, cardiac disease DVT/PE Risk Factors: none TAD/AAA risk factors: none Neuro deficit: none Lung disease: none Surgeries/Procedures: cardiac cath, cardiac stent Immunizations: UTD Allergies/Adverse Reactions: Allergies Allergy/AdvReac Type Severity Reaction Status Date / Time tramadol Allergy Intermediate Vomiting Verified 08/31/17 16:44 acetaminophen [From Vicodin] Allergy Verified 08/31/17 16:44 hydrocodone bitartrate Allergy Verified 08/31/17 16:44 [From Vicodin] ketorolac tromethamine AdvReac Intermediate Nausea/Vomi Verified 08/31/17 16:44 [From Toradol] ting nortriptyline [Nortriptyline] AdvReac Intermediate Vomiting Verified 08/31/17 16 :44 Home Medications: Ambulatory Orders Medication Instructions Recorded Aspirin [Adult Low Dose Aspirin EC] 81 mg PO D 07/25/16 Atorvastatin Calcium [Lipitor] 40 mg PO HS 07/25/16 Clonazepam 1 mg PO BID PRN 07/25/16 Hydrochlorothiazide [Hydrodiuril] 25 mg PO DAILY 07/25/16 Hydrocortisone [Cortef] 10 mg PO DIRECTED 07/25/16 Levothyroxine Sodium [Synthroid] 50 mcg PO D 07/25/16 Metformin HCl [Glucophage] 1,[place] [id number] 07/25/16 Metoprolol Tartrate [Lopressor] 50 mg PO BID 07/25/16 Nitroglycerin [Nitroquick] 0.4 mg SL Q5M 08/31/17 Oxycodone HCl/Acetaminophen 1 each PO TID PRN 08/31/17 [Percocet 10/325] Sennosides/Docusate Sodium 2 each PO BID 08/31/17 [Senna-Docusate Sodium Tablet] Topiramate [Topamax] 50 mg PO QDAY 08/31/17 - SOCIAL HX Smoking History: greater than 1 pack/day Alcohol Use: none Drug Use: none - FAMILY HX Family HX: CAD under 55, CAD over 55 - VITAL SIGNS Vital Signs: Vital Signs Temp Pulse Resp BP Pulse Ox 157/89 06/28/17 11:19 - REVIEWED ASSESSMENTS Nursing Assessment Reviewed: Yes Vitals Reviewed: Yes Progress - Progress Progress: 17:42 Post GI cocktail patient states that almost all (90%) of the pain is gone in her chest and arm. With labs being normal and normal EKG I doubt if patient is having angina that is responsible for her pain. However patient was advised of the importance of following up with her sound effects technician with all of her risk factors. ED Results Lab/Radiology - Radiology Radiology Impressions: Examination: PA and lateral chest. History: Evaluate lung felder. CHEST PAIN X 3 WEEKS (Hx) Comparison exam: None available for direct review. Findings: PA lateral chest demonstrate a normal cardiac and mediastinal silhouette. No focal infiltrate. No blunting of the costophrenic margins. Osseous structures are appropriate for age. Impression: No acute pulmonary process. Chest Pain Physical Exam - EXAM General Appearance: alert, mild distress EENT: eye inspection normal, ENT inspection normal, pharynx normal, no signs of dehydration Neck: nml inspection, no carotid bruit. No: JVD present, lymphadenopathy, subcutaneous emphysema Respiratory: no resp. distress, nml breath sounds, manifests distinct pain on movement, left, arm, other (patient seems to be very tender all along the costomanubrial boarder. ). No: wheezes, rales, rhonchi CVS: reg. rate & rhythm, no murmur, no gallop, no friction rub Abdomen: soft, no organomegaly, normal bowel sounds, no distension, tenderness ( epigastric area). No: rebound, guarding Skin: warm/dry, normal color Extremities: non-tender, no edema Neuro: oriented X3, cognition normal Discharge Clincal Impression: Atypical chest pain Referrals: Ba Edward MD [Primary Care Provider] - 2 Days Additional Instructions: Start taking some Omeprazole 20mg one tab/cap in the morning with breakfast. Try using a warm compress to your chest wall by your breast bone. Take only one aspirin a day until followed up by Dr Mccall. Avoid caffeine. Try to stop smoking. Follow-up with Dr Debo lemus. Condition: Stable Disposition: 01 HOME, SELF-CARE Decision to Admit: NO Date of Decison to Admit: 08/31/17 Decision Time: 17:49
[2017-08-31] MEDS ORDERED: MAG HYDROX/AL HYDROX/SIMETH 30 ML, Lidocaine 2%Visc 15ml 20 MG, PHENobarb/HYOSCY/ATROPI... PO ONE ×3 (16:57)
[2017-08-31 17:04] LABS: BASOPHILS % 0.6 (0.0-1.5); EOSINOPHILS % 3.8 % (0.0-6.8); MEAN CORPUSCULAR VOLUME 89.4 fl (80.0-100.0); MONOCYTES % 2.9 % (0.0-11.0); NEUTROPHILS # 5.3 # k/uL (1.4-7.7)
[2017-08-31 17:05] LABS: eGFR (African) > 60; eGFR (Non-African) > 60
[2017-08-31] MEDS ORDERED: MAGNESIUM HYDROXIDE/AL HYDROX 30 ML UDC PO ONE (17:11)
[2017-08-31] MEDS ORDERED: Lidocaine 2%Visc 15ml 20 MG/ML UDC ONE (17:11)
--- NOTE | 2017-08-31 17:36 | Diagnostic Imaging Report ---
JIM GORDILLO [facility] [address] [facility].[address] [address] Report Submission Date: Aug 31, 2017 5:19:21 PM TRANSFER TABLE OPERATOR Patient Study Name: GARTH COPELAND Date: Aug 31, 2017 5:02:22 PM TRANSFER TABLE OPERATOR Modality Type: DX Gender: F Description: CHEST : 72 Institution: [facility] Physician: JIM GORDILLO Examination: PA and lateral chest. History: Evaluate lung felder. CHEST PAIN X 3 WEEKS (Hx) Comparison exam: None available for direct review. Findings: PA lateral chest demonstrate a normal cardiac and mediastinal silhouette. No focal infiltrate. No blunting of the costophrenic margins. Osseous structures are appropriate for age. Impression: No acute pulmonary process. Electronically signed on Aug 31, 2017 5:19:21 PM TRANSFER TABLE OPERATOR by: Rom FULTON
[2017-08-31 18:07] VITALS: BP 114/77
== END 2017-08-31 18:00 | disposition home or self-care (01) ==
LOC: ED 16:11
DX: R07.89 Other chest pain (principal); I10 Essential (primary) hypertension; I51.9 Heart disease, unspecified; E11.9 Type 2 diabetes mellitus without complications; E78.5 Hyperlipidemia, unspecified; F17.210 Nicotine dependence, cigarettes, uncomplicated
CPT/HCPCS: 71046; 80053; 82550; 84484; 85025; 93005; A9270; 99283; S1016

== ENCOUNTER 2018-01-06 16:16 | Emergency (ER) | payer OTHER ==
[2018-01-06] MEDS: MAG HYDROX/ALUMINUM HYD/SIMETH 30 ML, Lidocaine 2%Visc 15ml 20 MG, PHENobarb/HYOSCY/ATR... PO ONE ×3 (16:40)
[2018-01-06 16:45] LABS: BASOPHILS % 0.7 (0.0-1.5); EOSINOPHILS % 3.6 % (0.0-6.8); MEAN CORPUSCULAR HEMOGLOBIN 31.1 pg (28.0-34.0); MEAN CORPUSCULAR VOLUME 88.7 fl (80.0-100.0); MONOCYTES % 2.8 % (0.0-11.0); NEUTROPHILS # 6.6 # k/uL (1.4-7.7)
[2018-01-06 17:05] LABS: eGFR (African) > 60; eGFR (Non-African) > 60
--- NOTE | 2018-01-06 17:51 | Diagnostic Imaging Report ---
REYNA ELLSWORTH (PLANT CULTURE MANAGER) - ER [facility] [id number] [facility].[address] [address] Report Submission Date: Jan 06, 2018 5:03:28 PM CDT Patient Study Name: GARTH COPELAND Date: Jan 06, 2018 4:45:50 PM CDT Modality Type: DX Gender: F Description: CHEST : 72 Institution: [facility] Physician: REYNA ELLSWORTH (PLANT CULTURE MANAGER) - ER Chest, AP portable HISTORY Cough, hypoxia. FINDINGS No infiltrate, effusion or pneumothorax is present. Heart size, mediastinum and pulmonary vascularity are normal. Since 08/31/2017, no change has occurred. IMPRESSION No active pulmonary disease. Electronically signed on Jan 06, 2018 5:03:28 PM CDT by: Roger FULTON
--- NOTE | 2018-01-06 18:02 | ED Physician Documentation ---
Chest Pain - HISTORIAN Historian: patient - HPI Chief Complaint: General Adult Onset: hours Timing: worse Last known Well Date: 01/06/18 Last Known Well Time: 08:00 Context: rest Severity: moderate Quality: pressure, tightness, like prior MO Chest Pain Radiation: arms Chest Pain Signs/Symptoms: denies: nausea, vomiting, diaphoresis, cool extremities, dizziness, dyspnea, tachypnea, tachycardia, hypotension, palpitations, weakness, other Worsened By: nothing Relieved By: nothing Further Comments: yes (47 year old female patient presents with CP; reports taking 3 ASA at 1200; took NTG at 1400, 2 tabs at 1500; rates pain 8/10 radiating to left arm. Old charts reviewed; CP relieved with GI cocktail on last admission.) - ROS CONST: none MS/LYMPH: none GI/: none EYES/ENT: none SKIN/ENDO: none NEURO/PSYCH: none - PAST HX MO risk factors: hypertension, diabetes Type 2, hyperlipidemia, cardiac disease , AMI, other (hypothyroidism) DVT/PE Risk Factors: none TAD/AAA risk factors: none Neuro deficit: none GI disease: GERD Lung disease: COPD Surgeries/Procedures: cardiac cath Allergies/Adverse Reactions: Allergies Allergy/AdvReac Type Severity Reaction Status Date / Time tramadol Allergy Intermediate Vomiting Verified 08/31/17 16:44 acetaminophen [From Vicodin] Allergy Verified 08/31/17 16:44 hydrocodone bitartrate Allergy Verified 08/31/17 16:44 [From Vicodin] ketorolac tromethamine AdvReac Intermediate Nausea/Vomi Verified 08/31/17 16:44 [From Toradol] ting nortriptyline [Nortriptyline] AdvReac Intermediate Vomiting Verified 08/31/17 16 :44 Home Medications: Ambulatory Orders Medication Instructions Recorded Aspirin [Adult Low Dose Aspirin EC] 81 mg PO D 07/25/16 Atorvastatin Calcium [Lipitor] 40 mg PO HS 07/25/16 Clonazepam 1 mg PO BID PRN 07/25/16 Hydrochlorothiazide [Hydrodiuril] 25 mg PO DAILY 07/25/16 Hydrocortisone [Cortef] 10 mg PO DIRECTED 07/25/16 Levothyroxine Sodium [Synthroid] 50 mcg PO D 07/25/16 Metformin HCl [Glucophage] 1,[place] [id number] 07/25/16 Metoprolol Tartrate [Lopressor] 50 mg PO BID 07/25/16 Nitroglycerin [Nitroquick] 0.4 mg SL Q5M 08/31/17 Oxycodone HCl/Acetaminophen 1 each PO TID PRN 08/31/17 [Percocet 10/325] Sennosides/Docusate Sodium 2 each PO BID 08/31/17 [Senna-Docusate Sodium Tablet] Topiramate [Topamax] 50 mg PO QDAY 08/31/17 - SOCIAL HX Smoking History: cigarettes - FAMILY HX Family HX: CAD over 55 - VITAL SIGNS Vital Signs: Vital Signs Temp Pulse Resp BP Pulse Ox 114/77 08/31/17 18:05 - REVIEWED ASSESSMENTS Nursing Assessment Reviewed: Yes Vitals Reviewed: Yes Progress - Progress Progress: CP improved with GI cocktail. Work up completed - negative for cardiac event. Patient medicated with nubain for chest wall pain. - EKG/XRAY/CT EKG: rhythm (SR, rate 66, no acute changes. ) ED Results Lab/Radiology - Lab Results Lab Results: Lab Results 01/06/18 01/06/18 01/06/18 16:40 16:40 16:40 WBC 9.60 K/ul K/ul (4.00-12.00) RBC 4.23 M/ul M/ul (3.90-5.20) Hgb 13.1 g/dL g/dL (12.0-16.0) Hct 37.5 % % (34.5-46.5) MCV 88.7 fl fl (80.0-100.0) MCH 31.1 pg pg (28.0-34.0) MCHC 35.0 g/dL g/dL (30.0-36.0) RDW 13.6 % % (11.3-14.3) Plt Count 323 K/mm3 K/mm3 (130-400) Neut % (Auto) 68.5 % % (39.0-79.0) Lymph % (Auto) 23.7 % % (16.0-50.0) Tripp % (Auto) 2.8 % % (0.0-11.0) Eos % (Auto) 3.6 % % (0.0-6.8) Baso % (Auto) 0.7 (0.0-1.5) Neut # (Auto) 6.6 # k/uL # k/uL (1.4-7.7) Lymph # (Auto) 2.3 # k/uL # k/uL (0.6-4.0) Tripp # (Auto) 0.3 # k/uL # k/uL (0.0-0.9) Eos # (Auto) 0.4 # k/uL # k/uL (0.0-0.6) Baso # (Auto) 0.1 # k/uL # k/uL (0.0-0.5) Reactive Lymphs % 0.6 % % (0.0-5.0) Reactive Lymphs # 0.1 # k/uL # k/uL (0.0-0.8) Sodium 141 mmol/L mmol/L (136-145) Potassium 3.6 mmol/L mmol/L (3.5-5.1) Chloride 102 mmol/L mmol/L (98-107) Carbon Dioxide 29 mmol/L mmol/L (22-30) BUN 15 mg/dL mg/dL (7-17) Creatinine 0.90 mg/dL mg/dL (0.52-1.04) Est GFR ( Amer) > 60 (60 - ) Est GFR (Non-Af Amer) > 60 (60 - ) Glucose 116 mg/dL H mg/dL (74-106) Calcium 9.8 mg/dL mg/dL (8.4-10.2) Total Bilirubin < 0.1 mg/dL L mg/dL (0.2-1.3) AST 13 U/L L U/L (15-46) ALT 16 U/L U/L (13-69) Alkaline Phosphatase 61 U/L U/L (38-126) Creatine Kinase 42 U/L U/L (30-135) Troponin I < 0.03 ng/mL L ng/mL (0.03-0.06) Total Protein 7.5 g/dL g/dL (6.3-8.2) Albumin 4.3 g/dL g/dL (3.5-5.0) - Radiology Radiology Impressions: Chest, AP portable HISTORY Cough, hypoxia. FINDINGS No infiltrate, effusion or pneumothorax is present. Heart size, mediastinum and pulmonary vascularity are normal. Since 08/31/2017, no change has occurred. IMPRESSION No active pulmonary disease. Electronically signed on Jan 06, 2018 5:03:28 PM CDT by: Roger Tsai - Orders Orders: ED Orders Category Date Time Status Continuous EKG monitoring Q30M Care 01/06/18 16:37 Active Continuous Pulse Oximetry Q30M Care 01/06/18 16:[address] IV Lock 1T Care 01/06/18 16:37 Active CHEST 1VIEW [RAD] Stat Exams 01/06/18 16:37 Completed CBC/PLATELET/DIFF Stat Lab 01/06/18 16:40 Completed CMP Stat Lab 01/06/18 16:40 Completed CREATINE KINASE Stat Lab 01/06/18 16:40 Completed TROPONIN I (cTnI) Stat Lab 01/06/18 16:40 Completed Mag Hydrox/Aluminum Hyd/Simeth [Mylanta] 30 ml Med 01/06/18 16:37 Discontinued Lidocaine 2%Visc 15ml [Xylocaine] 20 mg PHENobarb/HYOSCY/ATROPINE/SCOP [] 10 ml PO NOW Oxygen Daily Oxygen 01/06/18 16:45 Ordered Chest Pain Physical Exam - EXAM General Appearance: moderate distress EENT: eye inspection normal, ENT inspection normal, pharynx normal, no signs of dehydration, DIONE, no nystagmus, TM's nml Respiratory: no resp. distress, chest non-tender, nml breath sounds CVS: reg. rate & rhythm, no murmur, no gallop, no friction rub, pulses full, pulses equal Abdomen: soft, no organomegaly, normal bowel sounds, no abdominal bruit, no distension Skin: normal color, warm/dry, NR, INT, DR Extremities: non-tender, normal range of motion, no evidence of injury, no edema , J, PROJECT ASSISTANT Neuro: oriented X3, CN's nml as tested, motor nml, sensation nml, mood/affect nml Discharge Clincal Impression: Non-cardiac chest pain GERD (gastroesophageal reflux disease) Qualifiers: Esophagitis presence: without esophagitis Qualified Code(s): K21.9 - Gastro- esophageal reflux disease without esophagitis Additional Instructions: Follow up tomorrow with your primary care doctor. Rest Condition: Stable Disposition: 01 HOME, SELF-CARE Decision to Admit: NO Decision Time: 18:01
[2018-01-06] MEDS: NALBUPHINE HCL 10 MG/1 ML IM ONE (18:10)
[2018-01-06 20:16] VITALS: BP 98/67
== END 2018-01-06 18:20 | disposition home or self-care (01) ==
LOC: ED 16:16
DX: R07.9 Chest pain, unspecified (principal); K21.9 Gastro-esophageal reflux disease without esophagitis
CPT/HCPCS: 71045; 80053; 82550; 84484; 85025; 93005; A9270; J2300; 96372; 99285; S1016

== ENCOUNTER 2018-06-29 23:43 | Emergency (ER) | payer OTHER ==
[2018-06-29 23:58] VITALS: BP 143/83
[2018-06-30] MEDS ORDERED: AMOXICILLIN/POT 875/125 1 EACH PO ONE (00:02)
[2018-06-30] MEDS ORDERED: DIPH,PERTUSS(ACELL),TET VAC/PF 0.5 ML DISP.SYRIN IM ONE (00:02)
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
== END 2018-06-30 00:13 | disposition home or self-care (01) ==
LOC: ED 23:43
DX: S01.452A Open bite of left cheek and temporomandibular area, initial encounter (principal); Y04.1XXA Assault by human bite, initial encounter; Y93.89 Activity, other specified; Y92.9 Unspecified place or not applicable
CPT/HCPCS: 90471; 90715; 99282; 99284

== ENCOUNTER 2018-08-17 14:07 | Emergency (ER) | payer OTHER ==
--- NOTE | 2018-08-17 14:43 | ED Physician Documentation ---
Skin Rash - HISTORIAN Historian: patient - HPI Stated Complaint: Skin Rash Chief Complaint: General Adult Additional Information: Patient presents to ED with a 2 day history of open sores on her head/neck. Patient reports the last time she had this she was diagnosed with a brain tumor (pituitary tumor) which was 5 years ago. She is s/p resection. She had a negative MRI 7 months ago. She admits to a slight headache and constipation today. She also admits to eating ashes. Onset: days ago (2) Timing: still present Duration: persistent since Location: neck, other (head) Where: home Context: Medication Exposure: none Context: Food Exposure: none Further Comments: no - ROS CONST: denies: fever CVS/RESP: denies: shortness of breath EYES/ENT: none GI/: denies: vomiting, nausea MS/SKIN/LYMPH: neck pain NEURO/PSYCH: headache - PAST HX Past History: none Allergies/Adverse Reactions: Allergies Allergy/AdvReac Type Severity Reaction Status Date / Time tramadol Allergy Intermediate Vomiting Verified 08/17/18 14:52 acetaminophen [From Vicodin] Allergy Verified 08/17/18 14:52 hydrocodone bitartrate Allergy Verified 08/17/18 14:52 [From Vicodin] ketorolac tromethamine AdvReac Intermediate Nausea/Vomi Verified 08/17/18 14:52 [From Toradol] ting nortriptyline [Nortriptyline] AdvReac Intermediate Vomiting Verified 08/17/18 14:52 Home Medications: Ambulatory Orders Medication Instructions Recorded Aspirin [Adult Low Dose Aspirin EC] 81 mg PO D 07/25/16 Atorvastatin Calcium [Lipitor] 40 mg PO HS 07/25/16 Hydrochlorothiazide [Hydrodiuril] 25 mg PO DAILY 07/25/16 Hydrocortisone [Cortef] 10 mg PO DIRECTED 07/25/16 Levothyroxine Sodium [Synthroid] 50 mcg PO D 07/25/16 Metformin HCl [Glucophage] 1,[place] [address] 07/25/16 Metoprolol Tartrate [Lopressor] 50 mg PO BID 07/25/16 Nitroglycerin [Nitroquick] 0.4 mg SL Q5M 08/31/17 Oxycodone HCl/Acetaminophen 1 each PO TID PRN 08/31/17 [Percocet 10/325] Sennosides/Docusate Sodium 2 each PO BID 08/31/17 [Senna-Docusate Sodium Tablet] Topiramate [Topamax] 50 mg PO QDAY 08/31/17 Amoxicillin/Potassium Clav 1 each PO BID #10 tablet 06/30/18 [Augmentin 875Mg/125Mg] - SOCIAL HX Smoking History: cigarettes, greater than 1 pack/day Alcohol Use: none Drug Use: none - FAMILY HX Family History: none - VITAL SIGNS Vital Signs: Vital Signs Temp Pulse Resp BP Pulse Ox 97.8 F 84 14 110/68 97 08/17/18 14:07 08/17/18 14:07 08/17/18 14:07 08/17/18 14:07 08/17/18 14:07 - REVIEWED ASSESSMENTS Nursing Assessment Reviewed: Yes Vitals Reviewed: Yes ED Results Lab/Radiology - Lab Results Lab Results: Lab Results 08/17/18 08/17/18 Unknown Unknown WBC 8.20 K/ul K/ul (4.00-12.00) RBC 4.20 M/ul M/ul (3.90-5.20) Hgb 13.4 g/dL g/dL (12.0-16.0) Hct 38.8 % % (34.5-46.5) MCV 92.0 fl fl (80.0-100.0) MCH 31.8 pg pg (28.0-34.0) MCHC 34.4 g/dL g/dL (30.0-36.0) RDW 12.9 % % (11.3-14.3) Plt Count 274 K/mm3 K/mm3 (130-400) Neut % (Auto) 53.2 % % (39.0-79.0) Lymph % (Auto) 39.4 % % (16.0-50.0) Faulk % (Auto) 5.1 % % (0.0-11.0) Eos % (Auto) 1.6 % % (0.0-6.8) Baso % (Auto) 0.7 (0.0-1.5) Neut # (Auto) 4.4 # k/uL # k/uL (1.4-7.7) Lymph # (Auto) 3.2 # k/uL # k/uL (0.6-4.0) Faulk # (Auto) 0.4 # k/uL # k/uL (0.0-0.9) Eos # (Auto) 0.1 # k/uL # k/uL (0.0-0.6) Baso # (Auto) 0.1 # k/uL # k/uL (0.0-0.5) Sodium 141 mmol/L mmol/L (136-145) Potassium 3.0 mmol/L L mmol/L (3.5-5.1) Chloride 96 mmol/L L mmol/L (98-107) Carbon Dioxide 33 mmol/L H mmol/L (22-30) BUN 13 mg/dL mg/dL (7-17) Creatinine 0.88 mg/dL mg/dL (0.52-1.04) Estimated Creat Clear 246 Est GFR ( Amer) > 60 (60 - ) Est GFR (Non-Af Amer) > 60 (60 - ) Glucose 128 mg/dL H mg/dL (74-106) Calcium 9.7 mg/dL mg/dL (8.4-10.2) Total Bilirubin 0.2 mg/dL mg/dL (0.2-1.3) AST 22 U/L U/L (15-46) ALT 18 U/L U/L (13-69) Alkaline Phosphatase 62 U/L U/L (38-126) Total Protein 7.5 g/dL g/dL (6.3-8.2) Albumin 4.6 g/dL g/dL (3.5-5.0) - Radiology Radiology Impressions: Report Submission Date: Aug 17, 2018 4:17:45 PM WOOD TECHNOLOGIST Patient Study Name: GARTH COPELAND Date: Aug 17, 2018 3:32:03 PM WOOD TECHNOLOGIST Modality Type: CT\SR Gender: F Description: CT BRAIN W CONTRAST : 72 Institution: [facility] Physician: NICOL MORLEY Examination: CT head without/with contrast History: PT HX PITUITARY TUMOR, REMOVED IN 2004. PT PRESENTS WITH SORES ON HER HEAD X'S 1 WEEK. Comparison exam: None available Technique: Noncontrast/contrast head CT protocol. Findings: Ventricles and sulci are appropriate for patient age. Cerebrocerebellar parenchyma demonstrates normal attenuation. No evidence for parenchymal hemorrhage. No abnormal enhancement on the postcontrast imaging. No evidence for mass or mass effect. No midline shift. No extra axial fluid jacinto ections. Partial visualization of the paranasal sinuses, mastoid air cells, orbits, skull and scalp without gross irregularity. Impression: No acute parenchymal process. No hemorrhage. No abnormal e nhancement. Given patient's history of pituitary tumor removal, MRI attention pituitary may be warranted to further evaluate. Electronically signed on Aug 17, 2018 4:17:45 PM WOOD TECHNOLOGIST by: Rom Rodriguez - Orders Orders: ED Orders Category Date Time Status Place IV Lock 1T Care 08/17/18 14:[address] BRAIN W & W/O CON Stat Exams 08/17/18 Taken CBC/PLATELET/DIFF Routine Lab 08/17/18 Completed CMP [CMP] Routine Lab 08/17/18 Completed Potassium Chloride [Klor-Con M20] Med 08/17/18 15:52 Discontinued 20 meq PO NOW ONE Skin Rash Physical Exam - EXAM General Appearance: no acute distress, alert Skin: warm,dry Location: scalp, posterior neck Character: symmetric, erythematous (bleeding) Extremities: non-tender EENT: eyes nml inspection, other (tongue is black) Neck: trachea midline Respiratory: no resp distress CVS: reg. rate & rhythm, heart sounds nml Abdomen: non-tender Neuro/Psych: oriented x3 Discharge Clincal Impression: Pruritic rash Referrals: Ba Edward MD [Primary Care Provider] - 2 Days Additional Instructions: 1. Apply topical benedryl to sores as needed for itching 2. Keep scabs clean and dry. Wash twice daily with antibacterial soap 3. Follow up with PCP within 1 week 4. Return to ER for new or worsening symptoms. Condition: Stable Disposition: 01 HOME, SELF-CARE Decision to Admit: NO Date of Decison to Admit: 08/17/18 Decision Time: 16:36
[2018-08-17 15:11] LABS: MEAN CORPUSCULAR HEMOGLOBIN 31.8 pg (28.0-34.0)
[2018-08-17 15:12] LABS: BASOPHILS % 0.7 (0.0-1.5); EOSINOPHILS % 1.6 % (0.0-6.8); MONOCYTES % 5.1 % (0.0-11.0); NEUTROPHILS # 4.4 # k/uL (1.4-7.7)
[2018-08-17 15:31] LABS: eGFR (Non-African) > 60
[2018-08-17] MEDS ORDERED: POTASSIUM CHLORIDE 20 MEQ TABLET.ER PO ONE (15:52)
[2018-08-17 16:46] VITALS: BP 107/73
--- NOTE | 2018-08-18 06:30 | Diagnostic Imaging Report ---
NICOL MORLEY [facility] [id number] [facility] [address] [place] [address]. [id number] Report Submission Date: Aug 17, 2018 4:17:45 PM FLOOR COVERING CONTRACTOR Patient Study Name: GARTH COPELAND Date: Aug 17, 2018 3:32:03 PM FLOOR COVERING CONTRACTOR Modality Type: CT\SR Gender: F Description: CT BRAIN W CONTRAST : 72 Institution: [facility] Physician: NICOL MORLEY Examination: CT head without/with contrast History: PT HX PITUITARY TUMOR, REMOVED IN 2004. PT PRESENTS WITH SORES ON HER HEAD X'S 1 WEEK. Comparison exam: None available Technique: Noncontrast/contrast head CT protocol. Findings: Ventricles and sulci are appropriate for patient age. Cerebrocerebellar parenchyma demonstrates normal attenuation. No evidence for parenchymal hemorrhage. No abnormal enhancement on the postcontrast imaging. No evidence for mass or mass effect. No midline shift. No extra axial fluid collections. Partial visualization of the paranasal sinuses, mastoid air cells, orbits, skull and scalp without gross irregularity. Impression: No acute parenchymal process. No hemorrhage. No abnormal enhancement. Given patient's history of pituitary tumor removal, MRI attention pituitary may be warranted to further evaluate. Electronically signed on Aug 17, 2018 4:17:45 PM FLOOR COVERING CONTRACTOR by: Rom FULTON
== END 2018-08-17 16:48 | disposition home or self-care (01) ==
LOC: ED 14:07
DX: L29.9 Pruritus, unspecified (principal); Z86.018 Personal history of other benign neoplasm
CPT/HCPCS: 70470; 80053; 85025; 99283; 99284; A9270; Q9967; S1016